=== PATIENT | female | born 1965 ===

== ENCOUNTER → 2023-07-04 10:21 | Outpatient (REF) | payer OTHER, SELFPAY | LOC: HWRAD 10:21 | PROVIDERS: ATTENDING PHYSICIAN Physician Assistant | DX: R51.9 Headache, unspecified (principal); R42 Dizziness and giddiness; H53.9 Unspecified visual disturbance; S09.90XA Unspecified injury of head, initial encounter; H93.19 Tinnitus, unspecified ear; Z12.31 Encounter for screening mammogram for malignant neoplasm of breast | CPT/HCPCS: 70450 ==

== ENCOUNTER → 2024-02-12 13:58 | Outpatient (REF) | payer OTHER, SELFPAY | LOC: HWRAD 13:58 | PROVIDERS: ATTENDING PHYSICIAN Physician Assistant; FAMILY PHYSICIAN Student in an Organized Health Care Education/Training Program | DX: M25.50 Pain in unspecified joint (principal); M25.569 Pain in unspecified knee; M79.641 Pain in right hand; M79.642 Pain in left hand; M79.673 Pain in unspecified foot | CPT/HCPCS: 73130; 73564; 73630 ==